=== PATIENT | female | born 1935 | race Caucasian/White ===

== ENCOUNTER 2020-07-02 09:47 | Outpatient (RCR) | payer MEDICARE, OTHER, SELFPAY | END 2020-07-14 23:59 | disposition home or self-care (01) | LOC: WOUND 09:47 | PROVIDERS: Family Provider Family Medicine; PCP Nurse Practitioner; Visit Provider Nurse Practitioner Family | DX: S51.821A Laceration with foreign body of right forearm, initial encounter (principal); X58.XXXA Exposure to other specified factors, initial encounter | CPT/HCPCS: 99212 ==

== ENCOUNTER 2020-07-10 09:45 | Outpatient (CLI) | payer MEDICARE, OTHER, SELFPAY | END 2020-07-10 09:46 | disposition home or self-care (01) | LOC: WOUND 09:47 | PROVIDERS: Family Provider Family Medicine; PCP Nurse Practitioner; Visit Provider Emergency Medicine | DX: S51.821A Laceration with foreign body of right forearm, initial encounter (principal); X58.XXXA Exposure to other specified factors, initial encounter | CPT/HCPCS: 11042 ==

== ENCOUNTER 2020-07-17 10:12 | Outpatient (CLI) | payer MEDICARE, OTHER, SELFPAY | END 2020-07-17 10:13 | disposition home or self-care (01) | PROVIDERS: Family Provider Family Medicine; PCP Nurse Practitioner; Visit Provider Emergency Medicine | DX: S51.821A Laceration with foreign body of right forearm, initial encounter (principal); X58.XXXA Exposure to other specified factors, initial encounter | CPT/HCPCS: 11042 ==

== ENCOUNTER 2020-07-24 10:49 | Outpatient (CLI) | payer MEDICARE, OTHER, SELFPAY | END 2020-07-24 10:50 | disposition home or self-care (01) | LOC: WOUND 10:51 | PROVIDERS: Family Provider Family Medicine; PCP Nurse Practitioner; Visit Provider Emergency Medicine | DX: S51.821A Laceration with foreign body of right forearm, initial encounter (principal); X58.XXXA Exposure to other specified factors, initial encounter | CPT/HCPCS: 11042; A6446 ==

== ENCOUNTER 2020-07-31 11:11 | Outpatient (CLI) | payer MEDICARE, OTHER, SELFPAY | END 2020-07-31 11:12 | disposition home or self-care (01) | LOC: WOUND 11:12 | PROVIDERS: Family Provider Family Medicine; PCP Nurse Practitioner; Visit Provider Nurse Practitioner Family | DX: Z09 Encounter for follow-up examination after completed treatment for conditions other than malignant neoplasm (principal) ==

== ENCOUNTER → 2025-01-23 14:37 | Outpatient (BNVA) | payer MEDICARE, OTHER, SELFPAY | PROVIDERS: Family Provider Family Medicine; PCP Nurse Practitioner; Visit Provider Internal Medicine | DX: R07.9 Chest pain, unspecified (principal); I45.10 Unspecified right bundle-branch block; I35.1 Nonrheumatic aortic (valve) insufficiency; I10 Essential (primary) hypertension | CPT/HCPCS: 93005; 99204 ==